=== PATIENT | female | born 1950 | race Caucasian/White ===

== ENCOUNTER 2020-10-12 18:56 | Emergency (ER) | payer MEDICARE, OTHER ==
[2020-10-12] MEDS ORDERED: AUGMENTIN 875-1 EACH PO (23:02)
== END 2020-10-12 23:27 | disposition home or self-care (01) ==
LOC: FER 18:56
DX: S01.112A Laceration without foreign body of left eyelid and periocular area, initial encounter (principal); J45.909 Unspecified asthma, uncomplicated; Z88.8 Allergy status to other drugs, medicaments and biological substances; W18.09XA Striking against other object with subsequent fall, initial encounter; Y92.009 Unspecified place in unspecified non-institutional (private) residence as the place of occurrence of the external cause
CPT/HCPCS: 70450